=== PATIENT | male | born 1940 | race Caucasian/White ===

== ENCOUNTER 2019-01-19 12:20 | Outpatient (CLI) | payer MEDICARE ==
--- NOTE | 2019-01-19 12:46 | RAD ---
XR Chest Pa Lat STANDARD HISTORY: Dyspnea on exertion COMPARISON: None FINDINGS: The heart size is borderline. The aorta is tortuous. A left-sided pacemaker device is prese nt. The lungs are well expanded without focal areas of consolidation, pneumothorax or pleural effusions. There are postop changes of right rotator cuff repair IMPRESSION: No radiographic evidence of acute cardiopulmonary process.
== END 2019-01-19 12:21 | disposition home or self-care (01) ==
LOC: RAD 12:20
PROVIDERS: ATTEND Internal Medicine
DX: R06.00 Dyspnea, unspecified (principal); R06.02 Shortness of breath
CPT/HCPCS: 71046

== ENCOUNTER 2022-10-28 19:30 | Outpatient (CLI) | payer MEDICARE | END 2022-10-28 19:31 | disposition home or self-care (01) | LOC: SLEEPLAB 19:30 | PROVIDERS: ATTEND Internal Medicine | DX: G47.33 Obstructive sleep apnea (adult) (pediatric) (principal); E66.9 Obesity, unspecified; R06.83 Snoring; R53.83 Other fatigue | CPT/HCPCS: 95810 ==

== ENCOUNTER 2023-07-28 10:57 | Outpatient (CLI) | payer MEDICARE | END 2023-07-28 10:58 | disposition home or self-care (01) | LOC: MRI 10:57 | PROVIDERS: ATTEND Neurological Surgery | DX: M54.50 Low back pain, unspecified (principal); M48.061 Spinal stenosis, lumbar region without neurogenic claudication; M48.07 Spinal stenosis, lumbosacral region; M40.56 Lordosis, unspecified, lumbar region; Z95.810 Presence of automatic (implantable) cardiac defibrillator | CPT/HCPCS: 71046; 72148 ==